=== PATIENT | female | born 1935 | race Caucasian/White ===

== ENCOUNTER 2018-09-21 16:02 | Emergency (ER) | payer MEDICARE, OTHER ==
--- NOTE | 2018-09-21 16:22 | EDM.PDOC ---
ED HPI GENERAL MEDICAL PROBLEM - General Stated Complaint: HEART FLUTTER Time Seen by Provider: 09/21/18 16:02 Source of Information: Reports: Patient, Family History Limitations: Reports: No Limitations - History of Present Illness INITIAL COMMENTS - FREE TEXT/NARRATIVE: 83 y.o.w.f with pulmonary Hypertension, came to the ED with her friend due to palpitations lasting a few second. Pt denied any symptoms while having the palpitations and would not have come to the ed if her friend would not have asked her to go the ed. Pt was in her usual sate of health as she arrived here in the ed. No N/V/D or dizziness or any other acute medical issue. BP 145/65 RR 22 Pulse ox 94% on RA Pulse 94 Temp 37.0 Onset Date: 09/21/18 Onset Time: 07:00 Duration: Hour(s):, Intermittent Location: Reports: Chest Quality: Reports: Other Severity: Mild Improves with: Reports: None Worsens with: Reports: None Context: Reports: Other Associated Symptoms: Reports: No Other Symptoms - Related Data Allergies Allergy/AdvReac Type Severity Reaction Status Date / Time iodine Allergy Anaphylactic Verified 07/13/18 00:27 Shock Penicillins Allergy Anaphylactic Verified 07/13/18 00:27 Shock simvastatin Allergy Muscle Verified 07/13/18 00:27 Aches soy Allergy Anaphylactic Verified 07/13/18 00:27 Shock Home Meds: Home Meds Carboxymethylcellulose Sodium [Refresh Plus 0.5%] 1 drop EYEBOTH ASDIRECTED PRN 11/06/14 [History] Cetirizine [ZyrTEC] 10 mg PO DAILY 11/06/14 [History] Cyanocobalamin (Vitamin B12) [Vitamin B12] 1,000 mcg PO DAILY 11/06/14 [History] Diltiazem HCl [Dilt-Xr] 240 mg PO DAILY 11/06/14 [History] Furosemide [Lasix] 60 mg PO DAILY 11/06/14 [History] Gluc HCl/Csa/Marian Hy/Hyalur Ac [Glucosamine Chondroitin] 1 tab PO BID 11/06/14 [ History] Losartan [Cozaar] 12.5 mg PO DAILY 11/06/14 [History] Potassium Chloride 10 meq PO BID 11/06/14 [History] Vit A/Vit C/Vit E/Zinc/Copper [Preservision] 1 tab PO BID 11/06/14 [History] metFORMIN [Glucophage] 1,000 mg PO BIDMEALS 11/06/14 [History] Acetaminophen [Tylenol] 650 mg PO Q6HR PRN 07/13/18 [History] Aspirin [Adult Aspirin] 81 mg PO DAILY 07/13/18 [History] Azelastine [Optivar 0.05% Ophth Soln] 1 drop EYEBOTH BID 07/13/18 [History] Cyclobenzaprine [Flexeril] 10 mg PO Q8HR PRN 07/13/18 [History] Hydrocodone/Acetaminophen [Hydrocodon-Acetaminophen 5-325] 1 each PO Q6HR PRN [History] Magnesium Chloride [Mag-64] 64 mg PO DAILY 07/13/18 [History] Omeprazole 20 mg PO DAILY 07/13/18 [History] Pravastatin Sodium [Pravachol] 10 mg PO DAILY 07/13/18 [History] Past Medical History - Past Surgical History Female Surgical History: Reports: Cystectomy, Hysterectomy ED ROS GENERAL - Review of Systems Review Of Systems: See Below Constitutional: Reports: No Symptoms HEENT: Reports: No Symptoms Respiratory: Reports: No Symptoms Cardiovascular: Reports: No Symptoms Endocrine: Reports: No Symptoms GI/Abdominal: Reports: No Symptoms : Reports: No Symptoms Musculoskeletal: Reports: No Symptoms Skin: Reports: No Symptoms Neurological: Reports: No Symptoms Psychiatric: Reports: No Symptoms Hematologic/Lymphatic: Reports: No Symptoms Immunologic: Reports: No Symptoms ED EXAM, GENERAL - Physical Exam Exam: See Below Exam Limited By: No Limitations General Appearance: Alert, WD/WN, Mild Distress Eye Exam: Bilateral Eye: Normal Inspection Ears: Normal External Exam Ear Exam: Bilateral Ear: Auricle Normal Nose: Normal Inspection, Normal Mucosa, No Blood Throat/Mouth: Normal Lips, Normal Voice, No Airway Compromise Head: Atraumatic, Normocephalic Neck: Normal Inspection, Supple Respiratory/Chest: No Respiratory Distress, Lungs Clear, Normal Breath Sounds, Chest Non-Tender Cardiovascular: Normal Peripheral Pulses, Regular Rate, Rhythm, No Edema, No Gallop, No JVD Peripheral Pulses: 2+: Brachial (R) GI/Abdominal: Normal Bowel Sounds, Soft, Non-Tender, No Organomegaly, No Abnormal Bruit, No Mass, Pelvis Stable (Female) Exam: Deferred Rectal (Female) Exam: Deferred Back Exam: Normal Inspection, Full Range of Motion Extremities: Normal Inspection, Normal Range of Motion, Non-Tender Neurological: Alert, Oriented, CN II-XII Intact, Normal Cognition Psychiatric: Normal Affect, Normal Mood Skin Exam: Warm, Dry, Intact, Normal Color, No Rash Lymphatic: No Adenopathy EKG INTERPRETATION EKG Date: 09/21/18 Time: 16:25 Rhythm: NSR Rate (Beats/Min): 60 [place]: Normal P-Wave: Present QRS: Normal ST-T: Normal QT: Normal Comparison: NA - No Prior EKG Course - Vital Signs Text/Narrative:: 83 y.o.w.f with pulmonary Hypertension, came to the ED with her friend due to palpitations lasting a few second. Pt denied any symptoms while having the palpitations and would not have come to the ed if her friend would not have asked her to go the ed. Pt was in her usual sate of health as she arrived here in the ed. No N/V/D or dizziness or any other acute medical issue. BP 145/65 RR 22 Pulse ox 94% on RA Pulse 94 Temp 37.0 WNWD W F in NAD with palpitations lasting a few seconds Labs: CBC nl BMP: BUN 41 Cr 1.1 GFR 48 Na, K nl MERLYN: NSR Impression: Palpitations Tx: None Reexam: Pt was stable in the ed. Plan: D/C with instructions Last Recorded V/S: Last Vital Signs Temp 37.0 C 09/21/18 17:48 Pulse 94 09/21/18 17:48 Resp 22 H 09/21/18 17:48 BP 148/65 H 09/21/18 17:48 Pulse Ox 94 L 09/21/18 17:48 - Orders/Labs/Meds Orders: Active Orders 24 hr Category Date Time Status EKG Documentation Completion [RC] ASDIRECTED Care 09/21/18 16:14 Active UA W/MICROSCOPIC [URIN] Stat Lab 09/21/18 16:12 Ordered EKG 12 Lead [EK] Routine Ther 09/21/18 16:14 Ordered Labs: Laboratory Tests 09/21/18 09/21/18 09/21/18 Range/Units 16:30 16:30 16:30 WBC 5.8 (4.5-12.0) X10-3/uL RBC 3.89 (3.23-5.20) x10(6)uL Hgb 12.1 (11.5-15.5) g/dL Hct 36.2 (30.0-51.3) % MCV 92.9 (80-96) fL MCH 31.1 (27.7-33.6) pg MCHC 33.4 (32.2-35.4) g/dL RDW 13.2 (11.5-15.5) % Plt Count 296 (125-369) X10(3)uL MPV 8.0 (7.4-10.4) fL Neut % (Auto) 66.6 (46-82) % Lymph % (Auto) 19.0 (13-37) % [place] % (Auto) 9.9 (4-12) % Eos % (Auto) 4 (1.0-5.0) % Baso % (Auto) 1 (0-2) % Neut # (Auto) 3.9 (1.6-8.3) # Lymph # (Auto) 1.1 (0.6-5.0) # Trinity # (Auto) 0.6 (0.0-1.3) # Eos # (Auto) 0.2 (0.0-0.8) # Baso # (Auto) 0.0 (0.0-0.2) # Sodium 137 (135-145) mmol/L Potassium 3.9 (3.5-5.3) mmol/L Chloride 98 L (100-110) mmol/L Carbon Dioxide 34 H (21-32) mmol/L BUN 28 H (7-18) mg/dL Creatinine 1.1 H (0.55-1.02) mg/dL Est Cr Clr Drug Dosing TNP Estimated GFR (MDRD) 48 L (>60) BUN/Creatinine Ratio 25.5 H (9-20) Glucose 101 (80-116) mg/dL Calcium 9.2 (8.6-10.2) mg/dL Magnesium (1.8-2.5) mg/dL Troponin I < 0.017 L (<0.017-0.056) ng/mL TSH, Ultra Sensitive (0.36-3.74) IU/mL 09/21/18 09/21/18 Range/Units 16:30 16:30 WBC (4.5-12.0) X10-3/uL RBC (3.23-5.20) x10(6)uL Hgb (11.5-15.5) g/dL Hct (30.0-51.3) % MCV (80-96) fL MCH (27.7-33.6) pg MCHC (32.2-35.4) g/dL RDW (11.5-15.5) % Plt Count (125-369) X10(3)uL MPV (7.4-10.4) fL Neut % (Auto) (46-82) % Lymph % (Auto) (13-37) % [place] % (Auto) (4-12) % Eos % (Auto) (1.0-5.0) % Baso % (Auto) (0-2) % Neut # (Auto) (1.6-8.3) # Lymph # (Auto) (0.6-5.0) # Trinity # (Auto) (0.0-1.3) # Eos # (Auto) (0.0-0.8) # Baso # (Auto) (0.0-0.2) # Sodium (135-145) mmol/L Potassium (3.5-5.3) mmol/L Chloride (100-110) mmol/L Carbon Dioxide (21-32) mmol/L BUN (7-18) mg/dL Creatinine (0.55-1.02) mg/dL Est Cr Clr Drug Dosing Estimated GFR (MDRD) (>60) BUN/Creatinine Ratio (9-20) Glucose (80-116) mg/dL Calcium (8.6-10.2) mg/dL Magnesium 1.7 L (1.8-2.5) mg/dL Troponin I (<0.017-0.056) ng/mL TSH, Ultra Sensitive 0.46 (0.36-3.74) IU/mL Departure - Departure Time of Disposition: 17:18 Disposition: Home, Self-Care 01 Condition: Good Clinical Impression: Heart palpitations, Dehydration Instructions: Dehydration, Adult, [id number], Palpitations, [id number] Referrals: PCP,Unknown [Primary Care Provider] - Forms: ED Department Discharge Additional Instructions: Please continue your meds, please increase water intake, please f/u, come back if your symptoms get worse acutely - My Orders Last 24 Hours: My Active Orders 09/21/18 16:12 UA W/MICROSCOPIC [URIN] Stat 09/21/18 16:14 EKG Documentation Completion [RC] ASDIRECTED EKG 12 Lead [EK] Routine - Assessment/Plan Last 24 Hours: My Active Orders 09/21/18 16:12 UA W/MICROSCOPIC [URIN] Stat 09/21/18 16:14 EKG Documentation Completion [RC] ASDIRECTED EKG 12 Lead [EK] Routine
[2018-09-21 17:52] VITALS: BP 148/65
== END 2018-09-21 17:35 | disposition home or self-care (01) ==
LOC: FB.ED 16:02
DX: R00.2 Palpitations (principal); E86.0 Dehydration; Z79.82 Long term (current) use of aspirin; Z79.899 Other long term (current) drug therapy; Z91.018 Allergy to other foods; Z88.8 Allergy status to other drugs, medicaments and biological substances; Z88.0 Allergy status to penicillin; Z91.09 Other allergy status, other than to drugs and biological substances
CPT/HCPCS: 36415; 80048; 83735; 84443; 84484; 85025; 99285

== ENCOUNTER 2022-01-17 14:59 | Emergency (ER) | payer MEDICARE, OTHER ==
[2022-01-17] MEDS ORDERED: Sodium Chloride 0.9% 10 ML Syringe FLUSH PRN (15:14)
[2022-01-17 15:42] LABS: ESTIMATED GFR 47 (>60)
[2022-01-17] MEDS ORDERED: Furosemide 40 MG/4 ML VIAL IVPUSH ONE (17:34)
[2022-01-17] MEDS ORDERED: Metolazone 5 MG Tab PO SCH (17:45)
[2022-01-17 18:54] VITALS: BP 130/56; PULSE 63
== END 2022-01-17 18:55 ==
LOC: FB.ED 14:59
DX: S09.90XA Unspecified injury of head, initial encounter (principal); I50.9 Heart failure, unspecified; J44.9 Chronic obstructive pulmonary disease, unspecified; Z91.041 Radiographic dye allergy status; Z88.0 Allergy status to penicillin; Z88.8 Allergy status to other drugs, medicaments and biological substances; Z91.018 Allergy to other foods; Z79.82 Long term (current) use of aspirin; Z79.899 Other long term (current) drug therapy; W18.30XA Fall on same level, unspecified, initial encounter; Y92.002 Bathroom of unspecified non-institutional (private) residence as the place of occurrence of the external cause
CPT/HCPCS: 36415; 70450; 71045; 80053; 83880; 84484; 85025; 85610; 85730; 93005; 93010; 96374; 99282; 99285-25; A9270-GY; J1940

== ENCOUNTER 2023-01-27 13:50 | Emergency (ER) | payer MEDICARE, MEDICAID ==
[2023-01-27] MEDS ORDERED: Phenylephrine 1% 10 MG/ML SDV IV ONE (13:51)
[2023-01-27] MEDS ORDERED: Succinylcholine 200 MG/10 ML MDV IV ONE (13:51)
[2023-01-27] MEDS ORDERED: Propofol 200 MG/20 ML SDV IV ONE (13:51)
[2023-01-27] MEDS ORDERED: Rocuronium 100 MG/10 ML MDV IV ONE (13:51)
[2023-01-27 14:06] VITALS: BP 108/42; PULSE 47
[2023-01-27 14:59] LABS: HEMATOCRIT 32.8 % (34.2-48.2); HEMOGLOBIN 10.4 g/dL (11.4-15.5); MEAN CORPUSCULAR HEMOGLOBIN 31.8 pg (23.9-33.9); MEAN CORPUSCULAR HGB CONC 31.8 g/dL (31.9-34.8); MEAN CORPUSCULAR VOLUME 100.1 fL (76.7-100.5); RED BLOOD CELL COUNT 3.28 x10(6)uL (3.60-5.20); RED CELL DISTRIBUTION WIDTH 13.3 % (12.3-16.5)
[2023-01-27 15:02] LABS: BASE EXCESS ARTERIAL,POC 14 mmol/L (-2 - 3+); HCO3 ARTERIAL,POC 44 mmol/L (21-28); O2 SATURATION ARTERIAL,POC 82.1 % (94-98); PO2 ARTERIAL,POC 57 mmHg (83-108)
[2023-01-27 15:08] LABS: A/G RATIO 0.9; ALANINE AMINOTRANSFERASE,ALT 19 U/L (12-36); ALBUMIN 3.3 g/dL (3.2-4.6); ALKALINE PHOSPHATASE 87 IU/L (56-112); ASPARTATE AMNIOTRANSFERASE,AST 16 IU/L (5-25); BILIRUBIN TOTAL 0.3 mg/dL (0.1-1.3); BLOOD UREA NITROGEN,BUN 38 mg/dL (7-18); BUN/CREATININE RATIO 25.3 (9-20); CALCIUM 9.6 mg/dL (8.6-10.2); CHLORIDE,CL 96 mmol/L (100-110); CREATININE 1.5 mg/dL (0.55-1.02); ESTIMATED GFR 34 mL/min (>60); GLUCOSE RANDOM 201 mg/dL (80-116); POTASSIUM,K 5.6 mmol/L (3.5-5.3); PROTEIN TOTAL,TP 7.1 g/dL (6.0-8.0); SODIUM,NA 138 mmol/L (135-145)
[2023-01-27 15:13] LABS: CARBON DIOXIDE,CO2 42 mmol/L (21-32)
[2023-01-27 15:15] LABS: TROPONIN I 18.8 pg/mL (4.0-60.3)
[2023-01-27 15:18] LABS: INR 1.01 (1.00-1.24); PROTHROMBIN TIME 10.4 sec (9.0-11.1)
[2023-01-27] MEDS ORDERED: Midazolam 1 MG/ML 2 ML SDV ONE (15:51)
[2023-01-27] MEDS ORDERED: Midazolam 1 MG/ML 2 ML SDV IVPUSH ONE ×5 (16:10→16:46)
[2023-01-27] MEDS ORDERED: Iopamidol 755 Mg/ML 100 ML Bottle IV ONE (16:28)
== END 2023-01-27 16:53 | disposition other institution (70) ==
LOC: FB.ED 13:50
DX: J96.90 Respiratory failure, unspecified, unspecified whether with hypoxia or hypercapnia (principal); J44.9 Chronic obstructive pulmonary disease, unspecified; I27.20 Pulmonary hypertension, unspecified; S09.90XA Unspecified injury of head, initial encounter; Z88.0 Allergy status to penicillin; Z91.041 Radiographic dye allergy status; Z91.018 Allergy to other foods
CPT/HCPCS: 31500; 36415; 71045; 71275; 80053; 82803; 83605; 83880; 84484; 85027; 85379; 85610; 86140; 93005; 99285; J0330; J2250; J2370; J2704; Q9967

== ENCOUNTER 2024-04-27 09:15 | Emergency (ER) | payer MEDICARE, MEDICAID ==
[2024-04-27 10:08] LABS: BASOPHILS ABSOLUTE AUTO 0.1 x10-3/uL (0.0-0.1); EOSINOPHILS ABSOLUTE AUTO 0.2 x10-3/uL (0.0-0.8); EOSINOPHILS PERCENT AUTO 3.4 % (0.6-8.1); HEMATOCRIT 30.6 % (34.2-48.2); HEMOGLOBIN 9.1 g/dL (11.4-15.5); LYMPHOCYTES ABSOLUTE AUTO 0.5 x10-3/uL (1.0-4.4); MEAN CORPUSCULAR HEMOGLOBIN 24.5 pg (23.9-33.9); MEAN CORPUSCULAR HGB CONC 29.8 g/dL (31.9-34.8); MEAN CORPUSCULAR VOLUME 82.2 fL (76.7-100.5); MEAN PLATELET VOLUME 7.4 fL (7.1-12.4); MONOCYTES ABSOLUTE AUTO 0.7 x10-3/uL (0.3-1.0); MONOCYTES PERCENT AUTO 9.9 % (4.4-15.7); NEUTROPHILS ABSOLUTE AUTO 5.7 x10-3/uL (1.5-6.3); NEUTROPHILS PERCENT AUTO 78.7 % (30.8-76.2); PLATELET COUNT,PLT 362 x10(3)uL (151-488); RED CELL DISTRIBUTION WIDTH 19.7 % (12.3-16.5); WHITE BLOOD CELL COUNT,WBC 7.2 x10-3/uL (3.0-10.3)
[2024-04-27 10:10] LABS: BASE EXCESS VENOUS,POC 1 mmol/L (-2 - 3+); PCO2 VENOUS,POC 44 mmHg (41-51); PH VENOUS,POC 7.39 pH Units (7.32-7.43)
[2024-04-27 10:10] LABS: BLOOD UREA NITROGEN,BUN 39 mg/dL (7-18); BUN/CREATININE RATIO 22.9 (9-20); CARBON DIOXIDE,CO2 31 mmol/L (21-32); CHLORIDE,CL 101 mmol/L (100-110); CREATININE 1.7 mg/dL (0.55-1.02); ESTIMATED GFR 29 mL/min (>60); GLUCOSE RANDOM 276 mg/dL (80-116); POTASSIUM,K 4.7 mmol/L (3.5-5.3); SODIUM,NA 139 mmol/L (135-145)
[2024-04-27] MEDS: Furosemide 40 MG/4 ML VIAL IVPUSH ONE ×2 (10:11→14:19)
[2024-04-27] MEDS: Sodium Chloride 0.9% 10 ML Syringe FLUSH PRN (10:13)
[2024-04-27 10:16] LABS: A/G RATIO 0.9; ALANINE AMINOTRANSFERASE,ALT 35 U/L (12-36); ALBUMIN 3.3 g/dL (3.2-4.6); ALKALINE PHOSPHATASE 113 IU/L (56-112); ASPARTATE AMNIOTRANSFERASE,AST 52 IU/L (5-25); BILIRUBIN TOTAL 0.4 mg/dL (0.1-1.3); PROTEIN TOTAL,TP 7.1 g/dL (6.0-8.0)
[2024-04-27 10:24] LABS: TROPONIN I 17.1 pg/mL (4.0-60.3)
[2024-04-27 10:28] LABS: RED BLOOD CELL COUNT 3.73 x10(6)uL (3.60-5.20)
[2024-04-27 12:02] LABS: BILIRUBIN,URINE NEGATIVE (NEGATIVE); GLUCOSE,URINE >1000 mg/dL (NORMAL); KETONES,URINE NEGATIVE (NEGATIVE); LEUKOCYTE ESTERASE,URINE MODERATE (NEGATIVE); NITRITE,URINE NEGATIVE (NEGATIVE); OCCULT BLOOD,URINE MODERATE (NEGATIVE); PROTEIN,URINE NEGATIVE (NEGATIVE); UROBILINOGEN,URINE NORMAL (NEGATIVE)
[2024-04-27 12:08] LABS: APPEARANCE,URINE SLIGHTLY CLOUDY (CLEAR); BACTERIA,URINE MODERATE (NS); COLOR,URINE YELLOW (YELLOW); SQUAMOUS EPITHELIAL CELLS,UR FEW (NS,R,O); WBC,URINE 40-50 (0-5)
[2024-04-27 17:37] LABS: BLOOD UREA NITROGEN,BUN 39 mg/dL (7-18); BUN/CREATININE RATIO 22.9 (9-20); CALCIUM 8.1 mg/dL (8.6-10.2); CARBON DIOXIDE,CO2 33 mmol/L (21-32); CHLORIDE,CL 99 mmol/L (100-110); CREATININE 1.7 mg/dL (0.55-1.02); ESTIMATED GFR 29 mL/min (>60); GLUCOSE RANDOM 157 mg/dL (80-116); POTASSIUM,K 4.9 mmol/L (3.5-5.3); SODIUM,NA 138 mmol/L (135-145)
[2024-04-27 22:04] VITALS: BP 133/79; PULSE 82
== END 2024-04-27 21:48 | disposition other institution (70) ==
LOC: FB.ED 09:15
DX: J44.9 Chronic obstructive pulmonary disease, unspecified (principal); I11.0 Hypertensive heart disease with heart failure; I50.9 Heart failure, unspecified; Z91.041 Radiographic dye allergy status; Z88.0 Allergy status to penicillin; Z91.018 Allergy to other foods; Z88.1 Allergy status to other antibiotic agents; Z79.82 Long term (current) use of aspirin; Z79.899 Other long term (current) drug therapy; Z90.710 Acquired absence of both cervix and uterus
CPT/HCPCS: 36415; 71045; 80048; 80053; 81001; 83605; 83880; 84484; 85025; 85379; 86140; 87040; 87086; 87088; 93005; 94660; 96374; 96376; 99285; J1940; J3490